=== PATIENT | male | born 1940 | race Caucasian/White ===

== ENCOUNTER 2016-11-06 16:48 | Emergency (ER) | payer BC, MEDICARE ==
[~2016-11-06 16:48] MED LIST: COREG25 MG PO; IRBESARTAN-HCT1 EAC1 PO; NORVASC5 MG PO; RYTHMOL225 MG PO; TRILEPTAL300 MG PO
== END 2016-11-06 23:00 | disposition home or self-care (01) ==
LOC: ER 16:48
DX: M17.12 Unilateral primary osteoarthritis, left knee (principal); R20.0 Anesthesia of skin; G89.29 Other chronic pain; M54.9 Dorsalgia, unspecified; Z95.0 Presence of cardiac pacemaker; Z79.01 Long term (current) use of anticoagulants; Z79.899 Other long term (current) drug therapy
CPT/HCPCS: 73564; 99070; 99283-25

== ENCOUNTER 2016-12-16 16:52 | Emergency (ER) | payer BC, MEDICARE | END 2016-12-16 20:54 | disposition home or self-care (01) | LOC: ER 16:52 | DX: K59.00 Constipation, unspecified (principal); J44.9 Chronic obstructive pulmonary disease, unspecified; E11.9 Type 2 diabetes mellitus without complications; I10 Essential (primary) hypertension; Z95.0 Presence of cardiac pacemaker; Z79.02 Long term (current) use of antithrombotics/antiplatelets; Z79.899 Other long term (current) drug therapy | CPT/HCPCS: 74000; 99283-25 ==